=== PATIENT | male | born 1990 | race Caucasian/White ===

== ENCOUNTER 2017-01-18 19:25 | Emergency (ER) | payer OTHER ==
--- NOTE | 2017-01-18 20:12 | ED CLINICAL REPORT ---
Clinical Report - Physicians/Mid Levels [facility] [address] [place] [address] 01/18/2017 19:27 [id number] Time Seen: 19:35 Jan 18 2017. Arrived- By private vehicle. Historian- patient. HISTORY OF PRESENT ILLNESS Chief Complaint: BACK PAIN. It is described as being in the area of the lower lumbar spine and right lower lumbar spine and radiating to the left hip and thigh. The quality is noted to be "pain". 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 No bladder dysfunction. Additional history - Patient lifting furniture recently, part of the door that he was moving fell, patient went to catch the door and had onset of back pain, history of similar. Reports right back pain radiating to his right lower extremity. At home taking Tylenol. Reports hasn't primarily in bed due to pain. Pain worsens with movement. No urgency or frequency. Denies abdominal pain. Denies any diarrhea. Denies any saddle anesthesia, urinary incontinence. Denies any history of IV drug abuse. Mechanism of injury- he was lifting. REVIEW OF SYSTEMS No fever, chills, difficulty with urination, urinary frequency or abdominal pain. No vomiting. All systems otherwise negative, except as recorded above. PAST HISTORY The patient has had prior back pain and sciatica. SOCIAL HISTORY Current every day heavy tobacco smoker- 1 pack per day. Alcohol use. History of heavy drug use: marijuana. ADDITIONAL NOTES The nursing notes have been reviewed. PHYSICAL EXAM Vital Signs: 01/18/2017 19:31 BP: 145/94. HR: 76. RR: 16. O2 saturation: 98%. Temp: 98.2 F. Pain level now: 9/10. Appearance: Alert. Anxious. Appears to be in pain. Patient in mild distress. CVS: Heart sounds normal. Respiratory: No respiratory distress. Abdomen: No visible injury. Soft. Bowel sounds normal. No abdominal tenderness. Back: Mild vertebral point tenderness over the upper and lower thoracic and mid lumbar spine. Soft tissue tenderness. Neuro: No motor deficit. No sensory deficit. Straight leg raising: positive on the right at 15 degrees. Normal gait. PROGRESS AND PROCEDURES Course of Care: There are no risks for spinal epidural abscess or hematoma as patient is without any risk factors such as IVDA or evidence of active infection, no midline tenderness to percussion. Hence I do not feel emergent imaging with an MRI is indicated. However I did discuss with the patient that if these symptoms develop, or if the pain does not resolve an MRI may need to be done outpatient, or in the ED if symptoms worsen acutely or new onset of the above mentioned symptoms develop. Patient is stable. CLINICAL IMPRESSION Acute thoracic and lumbar back pain. Sciatica present on the right. INSTRUCTIONS Apply ice. Limit lifting. No strenuous activity. Warnings: CONTROLLED SUBSTANCE WARNINGS. Prescription Medications: Hydrocodone/APAP 7.5mg / 325mg: take 1 orally every 6 hours as needed for pain. Dispense fifteen (15). No refill. Robaxin 750 mg: take 1 orally every 8 hours for 5 days, as needed for muscle spasm. Dispense fifteen (15). No refill. Substitution is permissible. Ibuprofen 800 mg tablets: take 1 tablet orally every 8 hours for 5 days. Dispense fifteen (15). No refill. Understanding of the discharge instructions verbalized by patient. (Electronically signed by Roxy Ayers P.A.-C 01/18/2017 21:23)
--- NOTE | 2017-01-18 20:12 | ED CLINICAL REPORT ---
Clinical Report - Physicians/Mid Levels [facility] [address] [place] [address] 01/18/2017 19:27 [id number] Time Seen: 19:35 Jan 18 2017. Arrived- By private vehicle. Historian- patient. HISTORY OF PRESENT ILLNESS Chief Complaint: BACK PAIN. It is described as being in the area of the lower lumbar spine and right lower lumbar spine and radiating to the left hip and thigh. The quality is noted to be "pain". 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 No bladder dysfunction. Additional history - Patient lifting furniture recently, part of the door that he was moving fell, patient went to catch the door and had onset of back pain, history of similar. Reports right back pain radiating to his right lower extremity. At home taking Tylenol. Reports hasn't primarily in bed due to pain. Pain worsens with movement. No urgency or frequency. Denies abdominal pain. Denies any diarrhea. Denies any saddle anesthesia, urinary incontinence. Denies any history of IV drug abuse. Mechanism of injury- he was lifting. REVIEW OF SYSTEMS No fever, chills, difficulty with urination, urinary frequency or abdominal pain. No vomiting. All systems otherwise negative, except as recorded above. PAST HISTORY The patient has had prior back pain and sciatica. SOCIAL HISTORY Current every day heavy tobacco smoker- 1 pack per day. Alcohol use. History of heavy drug use: marijuana. ADDITIONAL NOTES The nursing notes have been reviewed. PHYSICAL EXAM Vital Signs: 01/18/2017 19:31 BP: 145/94. HR: 76. RR: 16. O2 saturation: 98%. Temp: 98.2 F. Pain level now: 9/10. Appearance: Alert. Anxious. Appears to be in pain. Patient in mild distress. CVS: Heart sounds normal. Respiratory: No respiratory distress. Abdomen: No visible injury. Soft. Bowel sounds normal. No abdominal tenderness. Back: Mild vertebral point tenderness over the upper and lower thoracic and mid lumbar spine. Soft tissue tenderness. Neuro: No motor deficit. No sensory deficit. Straight leg raising: positive on the right at 15 degrees. Normal gait. PROGRESS AND PROCEDURES Course of Care: There are no risks for spinal epidural abscess or hematoma as patient is without any risk factors such as IVDA or evidence of active infection, no midline tenderness to percussion. Hence I do not feel emergent imaging with an MRI is indicated. However I did discuss with the patient that if these symptoms develop, or if the pain does not resolve an MRI may need to be done outpatient, or in the ED if symptoms worsen acutely or new onset of the above mentioned symptoms develop. Patient is stable. CLINICAL IMPRESSION Acute thoracic and lumbar back pain. Sciatica present on the right. INSTRUCTIONS Apply ice. Limit lifting. No strenuous activity. Warnings: CONTROLLED SUBSTANCE WARNINGS. Prescription Medications: Hydrocodone/APAP 7.5mg / 325mg: take 1 orally every 6 hours as needed for pain. Dispense fifteen (15). No refill. Robaxin 750 mg: take 1 orally every 8 hours for 5 days, as needed for muscle spasm. Dispense fifteen (15). No refill. Substitution is permissible. Ibuprofen 800 mg tablets: take 1 tablet orally every 8 hours for 5 days. Dispense fifteen (15). No refill. Understanding of the discharge instructions verbalized by patient. (Electronically signed by Roxy Ayers P.A.-C 01/18/2017 21:23)
--- NOTE | 2017-01-18 20:13 | ED NURSING NOTES ---
Clinical Report - Nurses [facility] [address] [place] [address] 01/18/2017 19:27 Patient: JIMMY MARTE [facility] [id number] TRIAGE Triage time 19:Jan 18 2017. Acuity: LEVEL 4. Chief Complaint: BACK PAIN and (Patient has been moving furniture for the past couple days). 19:37 01/18/17. SEPSIS SCREEN: Sepsis Screen. Negative (no infection suspected/documented). RUFINA COMA SCORE: Rufina Coma Scale: 15- eyes open spontaneously (4); best verbal response- oriented x 4 (5); best motor response- obeys commands (6). --19:37 Brandy Rowell R.N. 19:31 01/18/17. BP: 145/94 (regular adult cuff) taken on the left arm. HR: 76. RR: 16. O2 saturation: 98% on room air. Temp: 98.2 F (oral). Pain level now: 05/24. --19:37 Brandy Rowell R.N. Weight: 113.3 kg stated. Height/Length: 75 inches Per Patient. BMI: 31.2. --19:36 Brandy oRwell R.N. Medications None. --19:35 Brandy Rowell R.N. Allergies No Known Drug Allergy. --19:35 Brandy Rowell R.N. History Arrived by private vehicle. Historian: patient. Accompanied by family. This started yesterday. ( Pain in right side of back, numbness and tingling in right leg. Patient says he has been in bed for the last day trying to rest. Past football injury 9 years ago and has sciatica problems). 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 PAST MEDICAL HX: Hypertension. Heart disease. SOCIAL HX: Current every day heavy tobacco smoker- 1 pack per day. Occasional alcohol use; consumes beer. History of heavy drug use: marijuana. Recently used drugs yesterday. No infectious disease exposure. ABUSE ASSESSMENT: No report of abuse. --19:37 Brandy Rowell R.N. PROBLEMS: Congestive Heart Failure. Back Injury. Abdominal Pain. Hypertension. Lumbar Strain. Chronic Back Pain. Back Pain. Sprain. --19:35 Brandy Rowell R.N. ADDITIONAL SURGERIES: Knee Surgery. --19:35 Brandy Rowell R.N. Interventions ID band on patient. To treatment room. --19:37 Brandy Rowell R.N. PHYSICAL ASSESSMENT 19:40 01/18/17. To room via wheelchair. Patient gowned. GENERAL / NEURO / PSYCH: Alert. Oriented X 4. RESPIRATORY: Respirations not labored. Chest nontender. Breath sounds within normal limits. CVS: Normal heart rate and rhythm. Capillary refill less than 2 seconds. GI / : Abdomen soft and nontender. Bowel sounds within normal limits. EXTREMITIES: Sensation intact in extremities. ROM of extremities within normal limits. BACK: Limited ROM of the back. Soft tissue tenderness in the right upper and mid thoracic paraspinous region. --19:40 Brandy Rowell R.N. NURSING PROGRESS NOTES 19:40 01/18/17. The plan of care for this patient has been created. Head of bed elevated. Reassurance given. Two patient identifiers checked. Call light placed in reach. Side rails up x 1. Bed placed in lowest position. Brakes of bed on. Patient ready for evaluation- chart flagged and ED physician notified. --19:40 Brandy Rowell R.N. 19:53 01/18/2017 Motrin PO Tablets 800 mg given. Allergies verified and confirmed 5 rights. --19:53 Brandy Rowell R.N. 19:54 01/18/2017 Hydrocodone-APAP (Hydrocodone-Acetaminophen) PO 5/325 mg Tablets 1 tab given. Allergies verified, confirmed 5 rights and sedative warning given to the patient. --19:54 Brandy Rowell R.N. 19:55 01/18/2017 Valium (Diazepam) PO Tablets 5 mg given. Allergies verified, confirmed 5 rights and sedative warning given to the patient. --19:55 Brandy Rowell R.N. 19:55 01/18/17. ( at bedside). --19:55 Brandy Rowell R.N. 20:15 01/18/2017 Motrin PO Response: no adverse reaction pain is improving. Symptoms have improved the patient feels better. --20:15 Brandy Rowell R.N. 20:15 01/18/2017 Hydrocodone-APAP PO Response: no adverse reaction pain is improving. Symptoms have improved the patient feels better. --20:15 Brandy Rowell R.N. 20:15 01/18/2017 Valium PO Response: no adverse reaction pain is improving. Symptoms have improved the patient feels better. --20:16 Brandy Rowell R.N. DISPOSITION / DISCHARGE Departure time: 2020. --20:22 Bonifacio Pacheco R.N. 20:21 01/18/17. The goals identified in the patient's plan of care were met. No learning barriers present. Discharge instructions provided and reviewed with the parent. Reviewed medication(s) (Shayna verbalizes importance of not driving and/or operating heavy machinery while taking prescribed sedating meds. He verbalizes safe, proper use of all prescribed pain meds for optimal pain management at home.). Activity restrictions (rest) reviewed. Work note given. Patient verbalized understanding. Written instructions provided in Pashto. ( Jimmy verbalizes understanding of all d/c instructions including need to f/u with PCP. He has no questions and voices no concerns at this time.). The patient was discharged by the physician. He was discharged home and accompanied by spouse. He left the Emergency Department ambulatory and via private vehicle. Spouse driving. RUFINA COMA SCORE: Rufina Coma Scale: 15- eyes open spontaneously (4); best verbal response- oriented x 4 (5); best motor response- obeys commands (6). --00:56 Bonifacio Pacheco R.N. 20:20 01/18/17. BP: 119/74 (regular adult cuff) taken on the left arm, via an automated monitor, while lying. HR: 77 (normal rate). RR: 16 (regular, unlabored and normal). O2 saturation: 98% on room air. Temp: 98.9 F (oral). Pain level now: 02/21. --00:56 Bonifacio Pacheco R.N. Locked/Released at 01/19/2017 0:56 by Bonifacio Pacheco R.N.
--- NOTE | 2017-01-18 20:13 | ED NURSING NOTES ---
Clinical Report - Nurses [facility] [address] [place] [address] 01/18/2017 19:27 [id number] Triage time 19:Jan 18 2017. Acuity: LEVEL 4. Chief Complaint: BACK PAIN and (Patient has been moving furniture for the past couple days). 19:37 01/18/17. SEPSIS SCREEN: Sepsis Screen. Negative (no infection suspected/documented). RUFINA COMA SCORE: Rufina Coma Scale: 15- eyes open spontaneously (4); best verbal response- oriented x 4 (5); best motor response- obeys commands (6). --19:37 Brandy Rowell R.N. 19:31 01/18/17. BP: 145/94 (regular adult cuff) taken on the left arm. HR: 76. RR: 16. O2 saturation: 98% on room air. Temp: 98.2 F (oral). Pain level now: 05/24. --19:37 Brandy Rowell R.N. Weight: 113.3 kg stated. Height/Length: 75 inches Per Patient. BMI: 31.2. --19:36 Brandy Rowell R.N. Medications None. --19:35 Brandy Rowell R.N. Allergies No Known Drug Allergy. --19:35 Brandy Rowell R.N. History Arrived by private vehicle. Historian: patient. Accompanied by family. This started yesterday. ( Pain in right side of back, numbness and tingling in right leg. Patient says he has been in bed for the last day trying to rest. Past football injury 9 years ago and has sciatica problems). 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 PAST MEDICAL HX: Hypertension. Heart disease. SOCIAL HX: Current every day heavy tobacco smoker- 1 pack per day. Occasional alcohol use; consumes beer. History of heavy drug use: marijuana. Recently used drugs yesterday. No infectious disease exposure. ABUSE ASSESSMENT: No report of abuse. --19:37 Brandy Rowell R.N. PROBLEMS: Congestive Heart Failure. Back Injury. Abdominal Pain. Hypertension. Lumbar Strain. Chronic Back Pain. Back Pain. Sprain. --19:35 Brandy Rowell R.N. ADDITIONAL SURGERIES: Knee Surgery. --19:35 Brandy Rowell R.N. Interventions ID band on patient. To treatment room. --19:37 Brandy Rowell R.N. PHYSICAL ASSESSMENT 19:40 01/18/17. To room via wheelchair. Patient gowned. GENERAL / NEURO / PSYCH: Alert. Oriented X 4. RESPIRATORY: Respirations not labored. Chest nontender. Breath sounds within normal limits. CVS: Normal heart rate and rhythm. Capillary refill less than 2 seconds. GI / : Abdomen soft and nontender. Bowel sounds within normal limits. EXTREMITIES: Sensation intact in extremities. ROM of extremities within normal limits. BACK: Limited ROM of the back. Soft tissue tenderness in the right upper and mid thoracic paraspinous region. --19:40 Brandy Rowell R.N. NURSING PROGRESS NOTES 19:40 01/18/17. The plan of care for this patient has been created. Head of bed elevated. Reassurance given. Two patient identifiers checked. Call light placed in reach. Side rails up x 1. Bed placed in lowest position. Brakes of bed on. Patient ready for evaluation- chart flagged and ED physician notified. --19:40 Brandy Rowell R.N. 19:53 01/18/2017 Motrin PO Tablets 800 mg given. Allergies verified and confirmed 5 rights. --19:53 Brandy Rowell R.N. 19:54 01/18/2017 Hydrocodone-APAP (Hydrocodone-Acetaminophen) PO 5/325 mg Tablets 1 tab given. Allergies verified, confirmed 5 rights and sedative warning given to the patient. --19:54 Brandy Rowell R.N. 19:55 01/18/2017 Valium (Diazepam) PO Tablets 5 mg given. Allergies verified, confirmed 5 rights and sedative warning given to the patient. --19:55 Brandy Rowell R.N. 19:55 01/18/17. ( at bedside). --19:55 Brandy Rowell R.N. 20:15 01/18/2017 Motrin PO Response: no adverse reaction pain is improving. Symptoms have improved the patient feels better. --20:15 Brandy Rowell R.N. 20:15 01/18/2017 Hydrocodone-APAP PO Response: no adverse reaction pain is improving. Symptoms have improved the patient feels better. --20:15 Brandy Rowell R.N. 20:15 01/18/2017 Valium PO Response: no adverse reaction pain is improving. Symptoms have improved the patient feels better. --20:16 Brandy Rowell R.N. DISPOSITION / DISCHARGE Departure time: 2020. --20:22 Bonifacio Pacheco R.N. 20:21 01/18/17. The goals identified in the patient's plan of care were met. No learning barriers present. Discharge instructions provided and reviewed with the parent. Reviewed medication(s) (Shayna verbalizes importance of not driving and/or operating heavy machinery while taking prescribed sedating meds. He verbalizes safe, proper use of all prescribed pain meds for optimal pain management at home.). Activity restrictions (rest) reviewed. Work note given. Patient verbalized understanding. Written instructions provided in Frisian. ( Jimmy verbalizes understanding of all d/c instructions including need to f/u with PCP. He has no questions and voices no concerns at this time.). The patient was discharged by the physician. He was discharged home and accompanied by spouse. He left the Emergency Department ambulatory and via private vehicle. Spouse driving. RUFINA COMA SCORE: Rufina Coma Scale: 15- eyes open spontaneously (4); best verbal response- oriented x 4 (5); best motor response- obeys commands (6). --00:56 Bonifacio Pacheco R.N. 20:20 01/18/17. BP: 119/74 (regular adult cuff) taken on the left arm, via an automated monitor, while lying. HR: 77 (normal rate). RR: 16 (regular, unlabored and normal). O2 saturation: 98% on room air. Temp: 98.9 F (oral). Pain level now: 02/21. --00:56 Bonifacio Pacheco R.N. Locked/Released at 01/19/2017 0:56 by Bonifacio Pacheco R.N.
--- NOTE | 2017-01-18 20:13 | ED ORDER SUMMARY ---
..... Patient: MARYAN MARTE Order[facility] VisitID: [id number] [address] [place] [address] 26y, M Registration Date/Time: 01/18/2017 ORDER SHEET Weight: 113.3 kg (stated) Allergies: No Known Drug Allergy GENERAL ORDERS: MEDICATION ORDERS: Valium PO 5 mg (HIGH ALERT MEDICATION, NOW) (19:48 01/18/2017 EKmariselalejason P.A.-C) (Ack 19:48 JSanders R.N.) (19:55 JSanders R.N.) Motrin PO 800 mg (NOW) (19:48 01/18/2017 Milanalejason P.A.-C) (Ack 19:48 JSanders R.N.) (19:53 JSanders R.N.) Hydrocodone-APAP PO 5/325 mg (NOW, HIGH ALERT MEDICATION) (19:48 01/18/2017 Reinier P.A.-C) (Ack 19:48 JSanders R.N.) (19:54 JSanders R.N.) IV FLUIDS: ORDER SHEET NOTES: [Electronically signed by Roxy AyersARia-Ashvin (21:23 01/18/2017)] [Electronically signed by Bonifacio Pacheco R.N. (00:56 01/19/2017)] [Electronically locked/signed by Bonifacio Pacheco R.N. (00:56 01/19/2017)]
--- NOTE | 2017-01-18 20:13 | ED ORDER SUMMARY ---
..... Patient: MARYAN MARTE OrderSheet [facility] VisitID: [id number] [address] [place] [address] 26y, M Registration Date/Time: 01/18/2017 ORDER SHEET Weight: 113.3 kg (stated) Allergies: No Known Drug Allergy GENERAL ORDERS: MEDICATION ORDERS: Valium PO 5 mg (HIGH ALERT MEDICATION, NOW) (19:48 01/18/2017 EKmariselalejason P.A.-C) (Ack 19:48 JSanders R.N.) (19:55 JSanders R.N.) Motrin PO 800 mg (NOW) (19:48 01/18/2017 Milanalejason P.A.-C) (Ack 19:48 JSanders R.N.) (19:53 JSanders R.N.) Hydrocodone-APAP PO 5/325 mg (NOW, HIGH ALERT MEDICATION) (19:48 01/18/2017 Reinier P.A.-C) (Ack 19:48 JSanders R.N.) (19:54 JSanders R.N.) IV FLUIDS: ORDER SHEET NOTES: [Electronically signed by Roxy AyersARia-Ashvin (21:23 01/18/2017)] [Electronically signed by Bonifacio Pacheco R.N. (00:56 01/19/2017)] [Electronically locked/signed by Bonifacio Pacheco R.N. (00:56 01/19/2017)]
--- NOTE | 2017-01-19 00:57 | ED MAR SUMMARY ---
..... Medication Administration Record [facility] [address] [place] [address] Patient: MARYAN MARTE Visit ID: [id number] 26y, M Weight: 113.3 kg Height/Length: 75 in BMI: 31.2 ALLERGIES: No Known Drug Allergy Given 19:53 01/18/2017 Brandy Rowell R.N. Medication Administered: MOTRIN [PO], Dose: 800 mg Tablets PO. Medication Ordered: Motrin PO 800 mg (NOW). Given 19:54 01/18/2017 Brandy Rowell R.N. Medication Administered: HYDROCODONE-APAP [PO] (HYDROCODONE-ACETAMINOPHEN), Dose: 1 tab 5/325 mg Tablets PO. Medication Ordered: Hydrocodone-APAP PO 5/325 mg (NOW, HIGH ALERT MEDICATION). Given 19:55 01/18/2017 Brandy Rowell R.N. Medication Administered: VALIUM [PO] (DIAZEPAM), Dose: 5 mg Tablets PO. Medication Ordered: Valium PO 5 mg (HIGH ALERT MEDICATION, NOW).
--- NOTE | 2017-01-19 00:57 | ED MED RECONCILIATION SUMMARY ---
Patient: MARYAN MARTE Medication Reconciliation Report [facility] VisitID: [id number] [address] [place] [address] 26y, M Registration Date/Time: 01/18/2017 Weight: 113.3 kg Height/Length: 75 in. BMI: 31.2 ALLERGIES: No Known Drug Allergy The patient's Home Medications are listed below: NONE. The source(s) of the original Home Medication information: Not obtained. The following Medications were given to the patient in the Emergency Department: Motrin [PO] PO 800 mg, administered: 01/18/2017 7:53:00 PM Hydrocodone-APAP [PO] PO 1 tab, administered: 01/18/2017 7:54:00 PM Valium [PO] PO 5 mg, administered: 01/18/2017 7:55:00 PM The following Medications were prescribed to the patient: Hydrocodone/APAP 7.5mg / 325mg: take 1 orally every 6 hours as needed for pain. Dispense fifteen (15). No refill. -- Roxy Ayers, P.A.-C Robaxin 750 mg: take 1 orally every 8 hours for 5 days, as needed for muscle spasm. Dispense fifteen (15). No refill. Substitution is permissible. -- Roxy Ayers P.A.-Ashvin Ibuprofen 800 mg tablets: take 1 tablet orally every 8 hours for 5 days. Dispense fifteen (15). No refill. -- Roxy Ayers P.A.-C
--- NOTE | 2017-01-19 00:57 | ED MED RECONCILIATION SUMMARY ---
Patient: MARYAN MARTE Medication Reconciliation Report [facility] VisitID: [id number] [address] [place] [address] 26y, M Registration Date/Time: 01/18/2017 Weight: 113.3 kg Height/Length: 75 in. BMI: 31.2 ALLERGIES: No Known Drug Allergy The patient's Home Medications are listed below: NONE. The source(s) of the original Home Medication information: Not obtained. The following Medications were given to the patient in the Emergency Department: Motrin [PO] PO 800 mg, administered: 01/18/2017 7:53:00 PM Hydrocodone-APAP [PO] PO 1 tab, administered: 01/18/2017 7:54:00 PM Valium [PO] PO 5 mg, administered: 01/18/2017 7:55:00 PM The following Medications were prescribed to the patient: Hydrocodone/APAP 7.5mg / 325mg: take 1 orally every 6 hours as needed for pain. Dispense fifteen (15). No refill. -- Roxy Ayers, P.A.-C Robaxin 750 mg: take 1 orally every 8 hours for 5 days, as needed for muscle spasm. Dispense fifteen (15). No refill. Substitution is permissible. -- Roxy Ayers P.A.-Ashvin Ibuprofen 800 mg tablets: take 1 tablet orally every 8 hours for 5 days. Dispense fifteen (15). No refill. -- Roxy Ayers P.A.-C
--- NOTE | 2017-01-19 00:57 | ED DISCHARGE INSTRUCTIONS ---
Patient: MARYAN MARTE General Instructions [facility] VisitID: [id number] [place] [address] 26y, M Registration Date/Time: 01/18/2017 Acute thoracic and lumbar back pain. Sciatica present on the right. INSTRUCTIONS Apply ice. Limit lifting. No strenuous activity. Warnings: CONTROLLED SUBSTANCE WARNINGS. Prescription Medications: Hydrocodone/APAP 7.5mg / 325mg: take 1 orally every 6 hours as needed for pain. Dispense fifteen (15). No refill. Robaxin 750 mg: take 1 orally every 8 hours for 5 days, as needed for muscle spasm. Dispense fifteen (15). No refill. Substitution is permissible. Ibuprofen 800 mg tablets: take 1 tablet orally every 8 hours for 5 days. Dispense fifteen (15). No refill. Understanding of the discharge instructions verbalized by patient. ADDITIONAL INFORMATION Sciatica Sciatica ("Lumbar Radiculopathy") causes a pain that spreads from the lower back down into the buttock, hip and leg. Sometimes leg pain can occur without any back pain. Sciatica is due to irritation or pressure on a spinal nerve as it comes out of the spinal canal. This is most often due to a bulge or rupture of a nearby spinal disk (the cartilage cushion between each spinal bone), which presses on a nearby nerve. Other causes include spinal stenosis (narrowing of the spinal canal) and spasm of the pyriform muscle (a muscle in the buttocks that the sciatic nerve passes through). Sciatica may begin after a sudden twisting/bending force (such as in a car accident), or sometimes after a simple awkward movement. In either case, muscle spasm is commonly present and contributes to the pain. The diagnosis of sciatica is made from the symptoms and physical exam. Unless you had a physical injury (such as a car accident or fall), X-rays are usually not ordered for the initial evaluation of sciatica because the nerves and disks cannot be seen on an x-ray. If signs of a compressed nerve are present (for example, loss of tendon reflex or strength in the leg), an MRI (magnetic resonance imaging) scan will need to be scheduled as an outpatient. Most sciatica (80-90%) gets better with medicine, exercise, physical therapy. If symptoms continue after at least three months of medical treatment, surgery may be considered. Home Care: You may need to stay in bed the first few days. But, as soon as possible, begin sitting or walking to avoid problems with prolonged bed rest. When in bed, try to find a position of comfort. A firm mattress is best. Try lying flat on your back with pillows under your knees. You can also try lying on your side with your knees bent up towards your chest and a pillow between your knees. Avoid prolonged sitting. This puts more stress on the lower back than standing or walking. Some persons find relief with heat (hot shower, hot bath or heating pad) and massage, while others prefer cold packs (crushed or cubed ice in a plastic bag, wrapped in a towel). Try both and use the method that feels best for 20 minutes several times a day. You may use acetaminophen (Tylenol) or ibuprofen (Motrin, Advil) to control pain, unless another pain medicine was prescribed. [ NOTE: If you have chronic liver or kidney disease or ever had a stomach ulcer or GI bleeding, talk with your doctor before using these medicines.] Be aware of safe lifting methods and do not lift anything over 15 pounds until all the pain is gone. Follow Up with your doctor or this facility if your symptoms do not start to improve after one week. Physical therapy or further testing may be needed. [NOTE: If X-rays were taken, they will be reviewed by a radiologist. You will be notified of any new findings that may affect your care.] Get Prompt Medical Attention if any of the following occur: Pain becomes worse, not controlled by the prescribed medicine Weakness or numbness in one or both legs Numbness in the groin, genital area Loss of bowel or bladder control Hydrocodone Bitartrate, Acetaminophen Oral tablet What is this medicine? ACETAMINOPHEN; HYDROCODONE (a set a MARK sarai fen; ros droe KOE done) is a pain reliever. It is used to treat mild to moderate pain. How should I use this medicine? Take this medicine by mouth. Swallow it with a full glass of water. Follow the directions on the prescription label. If the medicine upsets your stomach, take the medicine with food or milk. Do not take more than you are told to take. Talk to your creche attendant regarding the use of this medicine in children. This medicine is not approved for use in children. What side effects may I notice from receiving this medicine? Side effects that you should report to your doctor or health long term care administrator as soon as possible: allergic reactions like skin rash, itching or hives, swelling of the face, lips, or tongue breathing problems confusion feeling faint or lightheaded, falls stomach pain yellowing of the eyes or skin Side effects that usually do not require medical attention (report to your doctor or health long term care administrator if they continue or are bothersome): nausea, vomiting stomach upset What may interact with this medicine? alcohol antihistamines isoniazid medicines for depression, anxiety, or psychotic disturbances medicines for sleep muscle relaxants naltrexone narcotic medicines (opiates) for pain phenobarbital ritonavir tramadol What if I miss a dose? If you miss a dose, take it as soon as you can. If it is almost time for your next dose, take only that dose. Do not take double or extra doses. Where should I keep my medicine? Keep out of the reach of children. This medicine can be abused. Keep your medicine in a safe place to protect it from theft. Do not share this medicine with anyone. Selling or giving away this medicine is dangerous and against the law. Store at room temperature between 15 and 30 degrees C (59 and 86 degrees F). Protect from light. Keep container tightly closed. Throw away any unused medicine after the expiration date. Discard unused medicine and used packaging carefully. Pets and children can be harmed if they find used or lost packages. What should I tell my health care provider before I take this medicine? They need to know if you have any of these conditions: brain tumor Crohn's disease, inflammatory bowel disease, or ulcerative colitis drink more than 3 alcohol-containing drinks per day drug abuse or addiction head injury heart or circulation problems kidney disease or problems going to the bathroom liver disease lung disease, asthma, or breathing problems an unusual or allergic reaction to acetaminophen, hydrocodone, other opioid analgesics, other medicines, foods, dyes, or preservatives or trying to get breast-feeding What should I watch for while using this medicine? Tell your doctor or health long term care administrator if your pain does not go away, if it gets worse, or if you have new or a different type of pain. You may develop tolerance to the medicine. Tolerance means that you will need a higher dose of the medicine for pain relief. Tolerance is normal and is expected if you take the medicine for a long time. Do not suddenly stop taking your medicine because you may develop a severe reaction. Your body becomes used to the medicine. This does NOT mean you are addicted. Addiction is a behavior related to getting and using a drug for a non-medical reason. If you have pain, you have a medical reason to take pain medicine. Your doctor will tell you how much medicine to take. If your doctor wants you to stop the medicine, the dose will be slowly lowered over time to avoid any side effects. You may get drowsy or dizzy when you first start taking the medicine or change doses. Do not drive, use machinery, or do anything that may be dangerous until you know how the medicine affects you. Stand or sit up slowly. There are different types of narcotic medicines (opiates) for pain. If you take more than one type at the same time, you may have more side effects. Give your health care provider a list of all medicines you use. Your doctor will tell you how much medicine to take. Do not take more medicine than directed. Call emergency for help if you have problems breathing. The medicine will cause constipation. Try to have a bowel movement at least every 2 to 3 days. If you do not have a bowel movement for 3 days, call your doctor or health long term care administrator. Too much acetaminophen can be very dangerous. Do not take Tylenol (acetaminophen) or medicines that contain acetaminophen with this medicine. Many non-prescription medicines contain acetaminophen. Always read the labels carefully. Methocarbamol Oral tablet What is this medicine? METHOCARBAMOL (meth oh JAVY ba mole) helps to relieve pain and stiffness in muscles caused by strains, sprains, or other injury to your muscles. How should I use this medicine? Take this medicine by mouth with a full glass of water. Follow the directions on the prescription label. Take your medicine at regular intervals. Do not take your medicine more often than directed. Talk to your creche attendant regarding the use of this medicine in children. Special care may be needed. What side effects may I notice from receiving this medicine? Side effects that you should report to your doctor or health long term care administrator as soon as possible: allergic reactions like skin rash, itching or hives, swelling of the face, lips, or tongue blurred vision or changes in vision confusion fainting spells fever nausea or vomiting seizures Side effects that usually do not require medical attention (report to your doctor or health long term care administrator if they continue or are bothersome): dizziness drowsiness headache metallic taste What may interact with this medicine? alcohol or medicines that contain alcohol cholinesterase inhibitors like neostigmine, ambenonium, and pyridostigmine bromide other medicines that cause drowsiness What if I miss a dose? If you miss a dose, take it as soon as you can. If it is almost time for your next dose, take only the next dose. Do not take double or extra doses. Where should I keep my medicine? Keep out of the reach of children. Store at room temperature between 20 and 25 degrees C (68 and 77 degrees F). Keep container tightly closed. Throw away any unused medicine after the expiration date. What should I tell my health care provider before I take this medicine? They need to know if you have any of these conditions: kidney disease seizures an unusual or allergic reaction to methocarbamol, other medicines, foods, dyes, or preservatives or trying to get breast-feeding What should I watch for while using this medicine? You may get drowsy or dizzy. Do not drive, use machinery, or do anything that needs mental alertness until you know how this medicine affects you. Do not stand or sit up quickly, especially if you are an older patient. This reduces the risk of dizzy or fainting spells. Alcohol may interfere with the effect of this medicine. Avoid alcoholic drinks. Ibuprofen Oral tablet What is this medicine? IBUPROFEN (eye BYOO proe fen) is a non-steroidal anti-inflammatory drug (NSAID). It is used for dental pain, fever, headaches or migraines, osteoarthritis, rheumatoid arthritis, or painful monthly periods. It can also relieve minor aches and pains caused by a cold, flu, or sore throat. How should I use this medicine? Take this medicine by mouth with a glass of water. Follow the directions on the prescription label. Take this medicine with food if your stomach gets upset. Try to not lie down for at least 10 minutes after you take the medicine. Take your medicine at regular intervals. Do not take your medicine more often than directed. A special MedGuide will be given to you by the pharmacist with each prescription and refill. Be sure to read this information carefully each time. Talk to your creche attendant regarding the use of this medicine in children. Special care may be needed. What side effects may I notice from receiving this medicine? Side effects that you should report to your doctor or health long term care administrator as soon as possible: allergic reactions like skin rash, itching or hives, swelling of the face, lips, or tongue black or bloody stools, blood in the urine or in vomit breathing problems changes in vision chest pain general ill feeling or flu-like symptoms nausea or vomiting redness, blistering, peeling or loosening of the skin, including inside the mouth slurred speech or weakness on one side of the body stomach pain unexplained weight gain or swelling unusually weak or tired yellowing of eyes or skin Side effects that usually do not require medical attention (report to your doctor or health long term care administrator if they continue or are bothersome): constipation or diarrhea dizziness gas or heartburn stomach upset What may interact with this medicine? Do not take this medicine with any of the following medications: cidofovir ketorolac methotrexate pemetrexed This medicine may also interact with the following medications: alcohol aspirin diuretics lithium other drugs for inflammation like prednisone warfarin What if I miss a dose? If you miss a dose, take it as soon as you can. If it is almost time for your next dose, take only that dose. Do not take double or extra doses. Where should I keep my medicine? Keep out of the reach of children. Store at room temperature between 15 and 30 degrees C (59 and 86 degrees F). Keep container tightly closed. Throw away any unused medicine after the expiration date. What should I tell my health care provider before I take this medicine? They need to know if you have any of these conditions: asthma cigarette smoker drink more than 3 alcohol containing drinks a day heart disease or circulation problems such as heart failure or leg edema (fluid retention) high blood pressure kidney disease liver disease stomach bleeding or ulcers an unusual or allergic reaction to ibuprofen, aspirin, other NSAIDS, other medicines, foods, dyes, or preservatives or trying to get breast-feeding What should I watch for while using this medicine? Tell your doctor or healthcare professional if your symptoms do not start to get better or if they get worse. This medicine does not prevent heart attack or stroke. In fact, this medicine may increase the chance of a heart attack or stroke. The chance may increase with longer use of this medicine and in people who have heart disease. If you take aspirin to prevent heart attack or stroke, talk with your doctor or health long term care administrator. Do not take other medicines that contain aspirin, ibuprofen, or naproxen with this medicine. Side effects such as stomach upset, nausea, or ulcers may be more likely to occur. Many medicines available without a prescription should not be taken with this medicine. This medicine can cause ulcers and bleeding in the stomach and intestines at any time during treatment. Ulcers and bleeding can happen without warning symptoms and can cause . To reduce your risk, do not smoke cigarettes or drink alcohol while you are taking this medicine. You may get drowsy or dizzy. Do not drive, use machinery, or do anything that needs mental alertness until you know how this medicine affects you. Do not stand or sit up quickly, especially if you are an older patient. This reduces the risk of dizzy or fainting spells. This medicine can cause you to bleed more easily. Try to avoid damage to your teeth and gums when you brush or floss your teeth. You have been given the following additional information: Back Pain W/ Sciatica Hydrocodone Bitartrate, Acetaminophen Oral tablet Methocarbamol Oral tablet Ibuprofen Oral tablet Limit lifting. No strenuous activity. (Electronically signed by Roxy Ayers P.A.-C 01/18/2017 21:23)
--- NOTE | 2017-01-19 00:57 | ED MAR SUMMARY ---
..... Medication Administration Record [facility] [address] [place] [address] Patient: MARYAN MARTE Visit ID: [id number] 26y, M Weight: 113.3 kg Height/Length: 75 in BMI: 31.2 ALLERGIES: No Known Drug Allergy Given 19:53 01/18/2017 Brandy Rowell R.N. Medication Administered: MOTRIN [PO], Dose: 800 mg Tablets PO. Medication Ordered: Motrin PO 800 mg (NOW). Given 19:54 01/18/2017 Brandy Rowell R.N. Medication Administered: HYDROCODONE-APAP [PO] (HYDROCODONE-ACETAMINOPHEN), Dose: 1 tab 5/325 mg Tablets PO. Medication Ordered: Hydrocodone-APAP PO 5/325 mg (NOW, HIGH ALERT MEDICATION). Given 19:55 01/18/2017 Brandy Rowell R.N. Medication Administered: VALIUM [PO] (DIAZEPAM), Dose: 5 mg Tablets PO. Medication Ordered: Valium PO 5 mg (HIGH ALERT MEDICATION, NOW).
== END 2017-01-18 20:25 | disposition home or self-care (01) ==
LOC: ED SRH 19:25
DX: M54.41 Lumbago with sciatica, right side (principal); M54.6 Pain in thoracic spine; F17.210 Nicotine dependence, cigarettes, uncomplicated